=== PATIENT | female | born 1990 | race Caucasian/White ===

== ENCOUNTER 2016-06-28 13:49 | Inpatient (IN) | payer OTHER ==
[2016-06-28 15:29] LABS: HEMOGLOBIN 10.5 gm/dl (12.3-15.3); RED BLOOD COUNT 4.07 M/UL (4.00-5.10)
[2016-06-29 03:19] LABS: HEMOGLOBIN 8.8 gm/dl (12.3-15.3)
[2016-06-30] MEDS ORDERED: MIRALAX PACK 171 PKT PO (11:04)
== END 2016-06-30 12:22 | disposition home or self-care (01) | DRG 766 ==
LOC: GENOP 13:49 → OB 15:15
PROVIDERS: ADMIT Obstetrics & Gynecology
PROC: 10D00Z1 Extraction of Products of Conception, Low, Open Approach (ICD-10-PCS; principal; 2016-06-28 15:25)
DX: O34.211 Maternal care for low transverse scar from previous cesarean delivery (principal); N85.8 Other specified noninflammatory disorders of uterus; Z3A.38 38 weeks gestation of pregnancy; Z37.0 Single live birth; J45.909 Unspecified asthma, uncomplicated
CPT/HCPCS: 36415; 81001; 82800; 83518; 85014; 85018; 85025; C9113; J1580; J1885; J2274; J2300; J2405; J2550; J2590; J2765; J7040; J7050; J7120